=== PATIENT | male | born 1985 | race Two or more races ===

== ENCOUNTER 2019-02-26 08:13 | Emergency (ER) | payer OTHER ==
[2019-02-26] MEDS ORDERED: NORMAL SALINE 1000 ML 1,000 ML IV ONE (09:24)
--- NOTE | 2019-02-26 09:29 | ER Document Report ---
ED General - General Chief Complaint: High Blood Sugar Stated Complaint: LOWER BACK PAIN/NECK PAIN/BLOOD SUGAR ISSUES Time Seen by Provider: 02/26/19 09:06 TRAVEL OUTSIDE OF THE [place] IN LAST 30 DAYS: No - Related Data Allergies/Adverse Reactions: haloperidol [From Haldol] Allergy (Verified 02/26/19 08:38) ziprasidone [From Geodon] Allergy (Verified 02/26/19 08:38) Past Medical History - Social History Smoking Status: Current Every Day Smoker Chew tobacco use (# tins/day): No Frequency of alcohol use: Rare Drug Abuse: None Family History: None - Noncontributory Patient has suicidal ideation: No Patient has homicidal ideation: No - Past Medical History Cardiac Medical History: Reports: Hx Hypertension Endocrine Medical History: Reports: Hx Diabetes Mellitus Type 2 Past Surgical History: Reports: Hx Cholecystectomy Physical Exam - Vital signs Vitals: Temp Pulse Resp BP Pulse Ox 98.5 F 83 20 155/110 H 96 02/26/19 08:19 02/26/19 08:19 02/26/19 08:19 02/26/19 08:19 02/26/19 08:19 - Notes Notes: Patient presents emerge department with complaints #1 is elevated glucose. He has history of diabetes currently on insulin and metformin has been off both of his medicines for about 5 days because he is traveling. Said frequent urination is not any nausea vomiting fevers or abdominal pain. #2 his lower back pain. Is just on his right side going down the back of his right leg. Any trauma falls or heavy lifting. No numbness or weakness in the legs. Is been no loss of bowel bladder function or abnormal sensation in his perirectal area. Pain li ke this in the past. Says is been sitting on the bus for the past 5 days was complaining of some posterior neck pain is also been going on for several days. Again no history of trauma or falls. Denies any numbness or weakness in the arms or legs no chest pain or shortness of breath Past medical history history sent for diabetes and hypertension social history smokes he does not drink at all. Family history noncontributory Review of systems pertinent positives and negatives as in HPI otherwise all systems were reviewed and acutely negative PHYSICAL EXAMINATION: Vital signs were noted triage note reviewed GENERAL: Well-appearing, well-nourished and in no acute distress. HEAD: Atraumatic, normocephalic. EYES: Pupils equal round and reactive to light, extraocular movements intact, sclera anicteric, conjunctiva are normal. ENT: nares patent, oropharynx clear without exudates. Slightly dry mucous membranes. NECK: Normal range of motion, supple without lymphadenopathy he does get some minimal tenderness in the midline extending to the trapezius muscles. He is got no meningeal signs LUNGS: Breath sounds clear to auscultation bilaterally and equal. No wheezes rales or rhonchi. HEART: Regular rate and rhythm without murmurs ABDOMEN: Soft, nontender, normoactive bowel sounds. EXTREMITIES: No deformity, no pitting or edema. No cyanosis. NEUROLOGICAL: Cranial nerves she has symmetrical smile facies and shoulder shrug. Motor strength is symmetric bilaterally upper lower extremities. Toes are downgoing. Negative Romberg. Normal gait. No pain with straight leg raise PSYCH: Normal mood, normal affect. SKIN: Warm, Dry, normal turgor, no rashes or lesions noted. Back he has no tenderness in the midline or with sitting. This is some tenderness in the paravertebral area bilaterally Course - Re-evaluation Re-evalutation: 02/26/19 12:06 ED patient remained stable his sugar was noted laboratory studies are unremarkable with no anion gap acidosis Medical decision making patient presents with complaint of elevated sugar. Was only 200. Was unremarkable at this point he can be discharged home. To put him on both metformin and insulin we did start him on metformin I will follow her sugars and follow-up in the clinic in 1 week for recheck. If his back is no neurological deficits of his nose to suggest cauda equina syndrome and no red flags treated with Motrin at rest and again follow-up in clinic because of his sodium has any to use steroids. He has a negative straight leg raise so should do well with Motrin he will also be restarted on his lisinopril. Did emphasize need for him to take his medicines long-term complications from his diabetes and hypertension Dictation was done using voice recognition software. There may be some unintentional grammatical errors 02/26/19 12:08 02/26/19 12:09 - Vital Signs Vital signs: Temp Pulse Resp BP Pulse Ox 98.5 F 83 20 155/110 H 96 02/26/19 08:19 02/26/19 08:19 02/26/19 08:19 02/26/19 08:19 02/26/19 08:19 - Laboratory Result Diagrams: 02/26/19 09:35 Laboratory results interpreted by me: 02/26/19 02/26/19 02/26/19 08:44 09:25 09:35 BUN 21 H Glucose 219 H POC Glucose 229 H Urine Glucose (UA) >=500 H 02/26/19 11:12 BUN Glucose POC Glucose 202 H Urine Glucose (UA) Discharge - Discharge Clinical Impression: Type 2 diabetes mellitus Qualifiers: Diabetes mellitus extermination supervisor insulin use: unspecified extermination supervisor insulin use status Diabetes mellitus complication status: with hyperglycemia Qualified Cod e(s): E11.65 - Type 2 diabetes mellitus with hyperglycemia Low back strain Qualifiers: Encounter type: initial encounter Qualified Code(s): S39.012A - Strain of muscle, fascia and tendon of lower back, initial encounter Neck strain Qualifiers: Encounter type: initial encounter Qualified Code(s): S16.1XXA - Strain of muscle, fascia and tendon at neck level, initial encounter Disposition: HOME, SELF-CARE Instructions: Diabetes ([facility]), Upper Back Strain ([facility]), Neck Injury (Cervical Strain) ([facility]) Additional Instructions: Please review the discharge instructions Rest and avoid heavy lifting or bending Check your sugars twice a week IT IS VERY IMPORTANT THAT YOU TAKE YOUR DIABETES AND BLOOD PRESSURE MEDS EVERYDAY TO PREVENT SENIOR ACCOUNTS PAYABLE CLERK COMPLICATIONS like kidney failure heart attack stroke Your blood pressure is elevated needs to be rechecked again in 2 weeks to determine if you need to have your medicines adjusted Follow-up in the clinic in 1 week to recheck your blood pressure and sugar Return to the ED if you get worse Prescriptions: Ibuprofen 200 mg PO TID #20 tablet Lisinopril [Prinivil 10 mg Tablet] 10 mg PO DAILY #30 tablet Forms: Elevated Blood Pressure, Smoking Cessation Education
[2019-02-26 10:06] LABS: APPEARANCE,URINE CLEAR; BILIRUBIN,URINE NEGATIVE (NEGATIVE); COLOR,URINE YELLOW; GLUCOSE, URINE >=500 mg/dL (NEGATIVE); KETONES,URINE NEGATIVE (NEGATIVE); LEUKOCYTE ESTERASE,URINE NEGATIVE (NEGATIVE); NITRITE,URINE NEGATIVE (NEGATIVE); PROTEIN,URINE NEGATIVE (NEGATIVE); URINE SPECIFIC GRAVITY 1.018; UROBILINOGEN,URINE NEGATIVE mg/dL (<2.0)
[2019-02-26 10:19] LABS: ANION GAP 6 (5-19); BLOOD UREA NITROGEN 21 mg/dL (7-20); CALCIUM 8.7 mg/dL (8.4-10.2); CARBON DIOXIDE 28 mmol/L (22-30); CHLORIDE 106 mmol/L (98-107); GLUCOSE 219 mg/dL (75-110)
[2019-02-26 12:33] VITALS: BP 137/81
== END 2019-02-26 12:48 | disposition home or self-care (01) ==
LOC: ER 08:13
DX: E11.65 Type 2 diabetes mellitus with hyperglycemia (principal); S39.012A Strain of muscle, fascia and tendon of lower back, initial encounter; S16.1XXA Strain of muscle, fascia and tendon at neck level, initial encounter; X58.XXXA Exposure to other specified factors, initial encounter; F17.200 Nicotine dependence, unspecified, uncomplicated; I10 Essential (primary) hypertension; E11.9 Type 2 diabetes mellitus without complications; Z88.8 Allergy status to other drugs, medicaments and biological substances
CPT/HCPCS: 36415; 82010; 82962; 80048; 81001; J7030; 96360; 99283